=== PATIENT | female | born 1990 | race Caucasian/White ===

== ENCOUNTER 2017-08-01 01:49 | Emergency (ER) | payer OTHER ==
[~2017-08-01] VITALS: Ht 170.2 cm; Wt 135.4 kg
[~2017-08-01 01:49] MED LIST: ALBU18HF; DCL500C; DICY10CA13; METO10TA3 PO; NAPR250T5; OMEP20CA11 PO; ONDA8TAB10 PO; OXYC-474 PO; OXYC-530; PROM25TA14 PO; SUCR1TAB; SULF1TAB7; VERA120T5
[2017-08-01 01:50] VITALS: BP 144/91; PULSE 76; O2SAT 96
--- NOTE | 2017-08-01 02:11 | ED.REPORT ---
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 She c/o associated nausea, urinary urgency, increased urination. She denies vomiting and dysuria. The pt denies . Per pt, her flank pain is worse on the left. Nursing Notes Stated Complaint: POSSIBLE KIDNEY STONES Chief Complaint: Female Abdominal Pain Nursing Notes Reviewed: Yes Allergies: Coded Allergies: No Known Allergies (Verified Allergy, Unknown, 08/01/17) Scheduled Omeprazole (Omeprazole) 20 Mg Capsule.dr 20 MG PO BID Ondansetron ODT (Ondansetron ODT) 8 Mg Tab.rapdis 8 MG PO QID Scheduled PRN Metoclopramide (Metoclopramide) 10 Mg Tablet 10 MG PO TID PRN PRN For Nausea Ondansetron ODT (Ondansetron ODT) 8 Mg Tab.rapdis 8 MG PO Q4H PRN PRN For Nausea Oxycodone (Roxicodone) 5 Mg Tablet 5-10 MG PO Q4H PRN PRN For Pain Promethazine (Promethazine) Unknown Strength Tablet Unknown Dose PO Q6H PRN PRN For Nausea Miscellaneous Medications Albuterol Sulfate (Ventolin HFA Inhaler) 200 Puff/18 Gm Inhaler Dicloxacillin (Dicloxacillin) 500 Mg Capsule Dicyclomine (Dicyclomine) 10 Mg Capsule Naproxen (Naproxen) 250 Mg Tablet Sucralfate (Sucralfate) 1 Gm Tablet Sulfamethoxazole/Trimeth 800-160 mg (Bactrim DS) 1 Each Tablet Verapamil (Verapamil) 120 Mg Tablet oxyCODONE (oxyCODONE) 5 Mg Tablet General Time Seen by MD: 02:11 Chief Complaint Other (flank pain bilaterally) Hx Obtained From: Patient Arrived By: Walk-in Sudden in Onset?: No Onset Occurred: 3 days ago Symptom Duration: Since onset Location: : Flank left: Flank right Quality: Painful Radiation: : Does not radiate Severity: Current: Moderate Severity: Maximum: Moderate Recent Healthcare: No recent doctor visit, No recent hospitalization Similar Sx Previous: No Past Medical History Past Medical History Notes: Pt seen in ED 02/2016 for Abd pain - described GI w/u at OSH with CT, endoscopy negative. 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 Physical Exam Initial Vital Signs Vital Signs (First) Date Time Temp Pulse Resp B/P Pulse Ox O2 Delivery O2 Flow Rate FiO2 08/01/17 01:50 36.1 76 144/91 96 Room Air Initial VS: Reviewed Head / Eyes: Atraumatic, Normocephalic Neck: Supple, Full range of motion Extremities: Vascular intact, Neuro intact Skin: Warm, Dry, No cyanosis Neurologic: Alert, Oriented, Nonfocal Psychiatric: Mood/affect normal, Behavior normal General/Constitutional: Awake, Alert Respiratory / Chest: Atraumatic, Breath sounds NL, Breath sounds = bilat Cardiovascular: Heart rate NL, Regular rhythm, Heart sounds NL Abdomen: Atraumatic, Soft, Non-tender Back: Atraumatic, Full range of motion Left CVA tenderness Interpretation & Diagnostics Lab Results Interpretation Result Diagram: 08/01/17 0220 08/01/17 0220 Test 08/01/17 02:10 08/01/17 02:20 Urine Color Dark yellow (YELLOW) Urine Appearance Clear (CLEAR,HAZY) Urine pH 5.5 (5.0-8.0) Urine Specific Goessel 1.030 (1.003-1.035) Urine Protein Negativemg/dL (NEG,TRACE) Urine Glucose (UA) Negativemg/dL (NEGATIVE) Urine Ketones Negativemg/dL (NEGATIVE) Urine Occult Blood Negative (NEGATIVE) Urine Nitrite Negative (NEGATIVE) Urine Bilirubin Negative (NEGATIVE) Urine Urobilinogen 1.0mg/dL (NORMAL) Urine Leukocyte Esterase Negative (NEGATIVE) Urine RBC 0-2/hpf (0-2) Urine WBC 0-5/hpf (0-5) Urine Epithelial Cells Occasional/hpf (NONE-MOD) Urine Crystals None seen (NONE SEEN) Urine Bacteria Few/hpf (NONE-FEW) Urine Hyaline Casts None/lpf (NONE) Urine Granular Casts None seen (NONE SEEN) Urine Waxy Casts None seen (NONE SEEN) Urine Red Blood Cell Casts None seen (NONE SEEN) Urine White Blood Cell Casts None seen (NONE SEEN) Urine Mucus Present (None Seen) Urine Trichomonas None seen (NONE SEEN) Urine Yeast None (NONE SEEN) Urinalysis Comment None Urine Culture Reflexed Not indicated White Blood Count 14.5th/mm3 (3.8-10.1) Red Blood Count 5.21mil/mm3 (3.90-5.20) Hemoglobin 11.7g/dL (12.0-15.6) Hematocrit 36.2% (35.0-46.0) Mean Corpuscular Volume 69.5fL (81-100) Mean Corpuscular Hemoglobin 22.5pg (27.0-35.0) Mean Corpuscular Hemoglobin Concent 32.3% (32.0-37.0) Red Cell Distribution Width 18.2% (12.3-15.4) Platelet Count 292bil/L (150-400) Neutrophils (%) (Auto) 69.5% (40-74) Lymphocytes (%) (Auto) 20.7% (14-46) Monocytes (%) (Auto) 6.1% (4-12) Eosinophils (%) (Auto) 3.5% (0-5) Basophils (%) (Auto) 0.1% (0-3) Sodium Level 140mEq/L (134-144) Potassium Level 3.9mEq/L (3.5-5.2) Chloride Level 102mEq/L (97-108) Carbon Dioxide Level 25mmol/L (18-29) Blood Urea Nitrogen 18mg/dL (6-20) Creatinine 0.75mg/dL (0.57-1.00) Estimat Glomerular Filtration Rate 135mL/min (>59) Glucose Level 106mg/dL (60-99) Calcium Level 9.0mg/dL (8.5-10.1) Magnesium Level 2.1mg/dL (1.6-2.6) Total Bilirubin 0.2mg/dL (0.0-1.2) Aspartate Amino Transf (AST/SGOT) 16U/L (0-50) Alanine Aminotransferase (ALT/SGPT) 19U/L (0-32) Alkaline Phosphatase 75U/L (25-150) Total Protein 7.2g/dL (6.4-8.4) Albumin 3.9g/dL (3.4-5.0) Lipase 34U/L (13-60) Hold Chen Top Tube Received (Received) CT Abd / Pelvis Interpretation Mild mesenteric adenopathy Transmitted to the ED at 02:59 by Bill Etienne M.D. Study type: Abdominal CT no contrast Interpretation / Wet Read by: Interpret - Radiologist Re-Eval/Medical Decision Med Decision/Clinical Course Reassuring CT scan. Urine does show a few bacteria as leukocytosis or flank pain. As such we will treat her course of antibiotics for genitourinary pathogens. She also has evidence of possible mesenteric adenitis. She will follow up with her primary care physician this week. She will follow up with the urine culture as well. Source of Hx: Old records Re-Evaluation/Progress #1: Time of Eval: 02:14 Re-Evaluation/Progress Note: Informed pt of plan for labs and CT scan. Pt understands and agrees with plan. All questions addressed. Re-Evaluation/Progress #2: Time of Eval: 03:07 Patient Status: Condition improved Re-Evaluation/Progress Note: Pt rechecked. Discussed CT scan. Informed pt of plan for discharge. Pt understands and agrees with plan for discharge. F/U instructions and RTER warnings given. All questions addressed. Counseled Regarding: Diagnosis, Lab results, Need for follow-up, When/why to return to ED Discharge & Departure Primary Impression: Flank pain Additional Impression: Mesenteric lymphadenopathy Disposition: Home Discharge Condition All VS Reviewed: Yes Condition: Stable Patient Instructions: Acute Abdominal Pain (ED) Additional Instructions: The urine sample shows a few bacteria. We will culture this. In the meantime you will be on Bactrim twice daily for 7 days. If in 3 days a culture does not show any pathogens, you can stop the Bactrim and be followed up with within 3-4 days. For the pain you may take 1-2 Percocet every [address] or drink alcohol and some acetaminophen while taking the Percocet. The CAT scan was reassuring. You do have an elevated white blood cell count at 14,000. Perhaps this is from pain or possibly infection. Either way it is essential that you are seen this week in follow-up. Call your doctor tomorrow or the referral clinic. To hesitate to return if any problems or any new or worrisome symptoms. Referrals: OTHER,PHYSICIAN (PCP) [facility] Scribe Attestation Portions of this note were transcribed by Lachelle Andre. I, Dr. Pimentel personally performed the history, physical exam and medical decision-making; I reviewed and confirmed the accuracy of the information in the transcribed note. Signed by : Dionna Delgadillo, 07/31/17. copies to: OTHER,PHYSICIAN; [facility] Edison Pimentel DO Aug 01, 2017 02:11 Lachelle Aleman Aug 01, 2017 02:48
[2017-08-01 02:25] LABS: COLOR,URINE DARK YELLOW (YELLOW)
[2017-08-01 02:26] LABS: APPEARANCE,URINE CLEAR (CLEAR,HAZY); OCCULT BLOOD,URINE NEGATIVE (NEGATIVE); PH,URINE 5.5 (5.0-8.0)
[2017-08-01 02:29] LABS: BASOPHILS % (AUTO) 0.1 % (0-3); EOSINOPHILS % (AUTO) 3.5 % (0-5); MONOCYTES % (AUTO) 6.1 % (4-12); Mean Corpuscular Hemoglobin 22.5 pg (27.0-35.0); Mean Corpuscular Volume 69.5 fL (81-100); NEUTROPHILS % (AUTO) 69.5 % (40-74); Platelet Count 292 bil/L (150-400)
[2017-08-01 03:02] LABS: Magnesium 2.1 mg/dL (1.6-2.6)
[2017-08-01] MEDS ORDERED: Ondansetron 8 mg ODT Tablet PO ONE (03:10)
[2017-08-01] MEDS ORDERED: HYDROmorphone 1 mg/mL Inj IM ONE (03:10)
[2017-08-01] MEDS ORDERED: Trimethoprim-Sulfa 160 mg-800 mg Tablet PO ONE (03:15)
[2017-08-01] MEDS ORDERED: HYDROcodone-APAP 5-325 mg Tablet PO ONE (03:20)
--- NOTE | 2017-08-01 07:43 | DRSVH ---
PROCEDURE: CT KUB ([id number]) INDICATIONS: left flank pain, hematuria, hx of kidney mass TECHNIQUE: Noncontrast 5 mm thick sections acquired from the diaphragms to the symphysis. 5 mm thick coronal an d sagittal reformats were then performed. For radiation dose reduction, the following was used: aut omated exposure control, adjustment of mA and/or kV according to patient size. COMPARISON: None. FINDINGS: Image quality: Excellent. Lung bases: Lung bases are clear. Heart size is normal. Urinary system: Both kidneys are normal in size. No kidney stones. No hydronephrosis or perinephri c fat stranding. Both ureters appear non-dilated throughout their expected courses. Bladder is cont racted; no calcified bladder stones. Other solid organs: Liver is mildly enlarged measuring 24.8 cm in length. Spleen is normal in size. Gallbladder is normal. Pancreas is normal in contours. No adrenal nodules. Peritoneum and bowel: Unenhanced bowel loops demonstrate normal wall thickness and caliber. No free fluid or air. Nodes and vessels: No retroperitoneal or mesenteric adenopathy by size criteria. Aorta and inferior vena cava are normal in caliber. Abdominal wall: No ventral hernias. Pelvis: No free pelvic fluid. No inguinal hernias or adenopathy. Bones: No suspicious bony lesions. No vertebral body compression fractures. IMPRESSION: 1. No renal stone or hydronephrosis. No definitive CT findings to explain left flank pain. 2. Numerous normal-sized mesenteric lymph nodes, most likely secondary to nonspecific mesenteric aissatou itis. The finding is, however, nonspecific and may be secondary to infectious, inflammatory or neopl astic etiology. Recommend clinical correlation and follow up. 3. Mild hepatomegaly. 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 Dictated by: Jeanine Pedro M.D. on 08/01/2017 at 7:43 Transcribed by: [email or web address] on 08/01/2017 at 7:43 Approved by: Jeanine Pedro M.D. on 08/01/2017 at 8:23
== END 2017-08-01 03:32 | disposition home or self-care (01) ==
LOC: SED 01:49
DX: R10.32 Left lower quadrant pain (principal); R10.31 Right lower quadrant pain; R59.1 Generalized enlarged lymph nodes; R11.0 Nausea; R35.0 Frequency of micturition; R39.15 Urgency of urination; J45.909 Unspecified asthma, uncomplicated; Z87.442 Personal history of urinary calculi; Z90.89 Acquired absence of other organs; Z87.891 Personal history of nicotine dependence
CPT/HCPCS: 36415; 74176; 80053; 81000; 83690; 83735; 85025; 87086; 96372; 99285; J1885